=== PATIENT | male | born 1980 | race Caucasian/White ===

== ENCOUNTER → 2017-07-15 | Emergency (ER) | payer OTHER ==
[~2017-07-15] VITALS: Ht 190.5 cm; Wt 104.3 kg
[~2017-07-15] MED LIST: DICLOFENAC SODI50 MG PO; NORFLEX100MG PO
== END | disposition home or self-care (01) ==
LOC: ER 08:17
DX: S33.5XXA Sprain of ligaments of lumbar spine, initial encounter (principal); X50.0XXA Overexertion from strenuous movement or load, initial encounter; Y93.89 Activity, other specified; Y92.89 Other specified places as the place of occurrence of the external cause; Y99.8 Other external cause status

== ENCOUNTER 2017-11-27 22:08 | Emergency (ER) | payer OTHER ==
[~2017-11-27] VITALS: Ht 190.5 cm; Wt 99.3 kg
[2017-11-28] MEDS ORDERED: MECLIZINE HCL25 MG PO (02:20)
[2017-11-28] MEDS ORDERED: METOCLOPRAMIDE10 MG PO (02:20)
== END 2017-11-28 02:10 | disposition home or self-care (01) ==
LOC: ER 22:08
DX: H81.13 Benign paroxysmal vertigo, bilateral (principal); R42 Dizziness and giddiness